=== PATIENT | male | born 1955 | race African-American/Black ===

== ENCOUNTER 2017-08-26 22:18 | Inpatient (IN) | payer OTHER ==
[~2017-08-26] VITALS: Ht 190.5 cm; Wt 185.1 kg
[2017-08-26 22:20] VITALS: BP 96/72
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
[2017-08-27] VITALS (9 sets, daily range): BP systolic 110–142; BP diastolic 62–79
[2017-08-27 00:50] LABS: BASOPHILS % (AUTO) 0.7 % (0.0-2.0); EOSINOPHILS % (AUTO) 0.9 % (0.0-3.0); HEMATOCRIT 37.2 % (42.0-52.0); HEMOGLOBIN 12.4 G/DL (14.2-18.0); LYMPHOCYTES % (AUTO) 22.8 % (20.0-45.0); MEAN CORPUSCULAR VOLUME 94 FL (80-99); MONOCYTES % (AUTO) 4.8 % (1.0-10.0); NEUTROPHILS % (AUTO) 70.9 % (45.0-75.0); PLATELET COUNT 132 K/UL (150-450); RED BLOOD COUNT 3.98 M/UL (4.70-6.10); RED CELL DISTRIBUTION WIDTH 13.6 % (11.6-14.8); WHITE BLOOD COUNT 10.5 K/UL (4.8-10.8)
[2017-08-27 00:52] LABS: APPEARANCE,URINE CLEAR; BILIRUBIN, URINE NEGATIVE (NEGATIVE); GLUCOSE, URINE (UA) NEGATIVE (NEGATIVE); KETONES,URINE NEGATIVE (NEGATIVE); LEUKOCYTE ESTERASE ,URINE NEGATIVE (NEGATIVE); NITRITE,URINE NEGATIVE (NEGATIVE); PH,URINE 5 (4.5-8.0); PROTEIN,URINE NEGATIVE (NEGATIVE); UROBILINOGEN,URINE NORMAL MG/DL (0.0-1.0)
[2017-08-27 00:55] LABS: COLOR,URINE YELLOW
[2017-08-27 01:00] LABS: ANION GAP 12 mmol/L (5-15); BLOOD UREA NITROGEN 20 mg/dL (7-18); CALCIUM 8.1 MG/DL (8.5-10.1); CARBON DIOXIDE 25 MMOL/L (21-32); CHLORIDE 101 MMOL/L (98-107); CREATININE 1.6 MG/DL (0.55-1.30); POTASSIUM 3.4 MMOL/L (3.5-5.1); SODIUM 138 MMOL/L (136-145)
[2017-08-27 01:04] LABS: ALANINE AMINOTRANSFERASE 30 U/L (12-78); ALBUMIN 3.1 G/DL (3.4-5.0); ALBUMIN/GLOBULIN RATIO 0.8 (1.0-2.7); ALKALINE PHOSPHATASE 57 U/L (46-116); ASPARTATE AMINO TRANSFERASE 44 U/L (15-37); BILIRUBIN,TOTAL 0.3 MG/DL (0.2-1.0)
[2017-08-27] MEDS ORDERED: METFORMIN HCL500 M1 ORAL (05:49)
[2017-08-27] MEDS ORDERED: LISINOPRIL2.5 MG ORAL (05:49)
--- NOTE | 2017-08-27 09:54 | Emergency Room Report ---
History of Present Illness General Chief Complaint: Altered Level of Consciousness Source: Patient Present Illness Allergies: Coded Allergies: No Known Allergies (Unverified , 08/27/17) Nursing Documentation-[facility] Past Medical History Deferred: Pt Cognitively Impaired Hx Hypertension: Yes Hx Diabetes: Yes Physical Exam Vital Signs Date Time Temp Pulse Resp B/P (MAP) Pulse Ox O2 Delivery O2 Flow Rate FiO2 08/26/17 21:57 97.7 87 18 85/60 96 Room Air 97.7 Medical Decision Making Diagnostic Impression: Primary Impression: Alcohol intoxication Qualified Codes: F10.920 - Alcohol use, unspecified with intoxication, uncomplicated Additional Impression: Morbid obesity with BMI of 50.0-59.9, adult ER Course Please refer to the initial note for the history exam and presentation At the [place] emergency department was concern regarding the patient's sensory deficit On repeat evaluation patient has sensation on both calf area and upper thigh Patient grimaced and moved his legs upward with stimulation Patient however still has difficulty standing and ambulating Multiple facilities including [facility], the ID have been contacted Noncommunicative the weight restraints for further imaging Patient does require further evaluation and care Upon multiple attempts for transfer to higher level of care we have been unsuccessful and patient admitted for further inpatient care Labs Test 08/27/17 00:25 White Blood Count 10.5 K/UL (4.8-10.8) Red Blood Count 3.98 M/UL (4.70-6.10) Hemoglobin 12.4 G/DL (14.2-18.0) Hematocrit 37.2 % (42.0-52.0) Mean Corpuscular Volume 94 FL (80-99) Mean Corpuscular Hemoglobin 31.2 PG (27.0-31.0) Mean Corpuscular Hemoglobin Concent 33.3 G/DL (32.0-36.0) Red Cell Distribution Width 13.6 % (11.6-14.8) Platelet Count 132 K/UL (150-450) Mean Platelet Volume 11.9 FL (6.5-10.1) Neutrophils (%) (Auto) 70.9 % (45.0-75.0) Lymphocytes (%) (Auto) 22.8 % (20.0-45.0) Monocytes (%) (Auto) 4.8 % (1.0-10.0) Eosinophils (%) (Auto) 0.9 % (0.0-3.0) Basophils (%) (Auto) 0.7 % (0.0-2.0) Urine Color Yellow Urine Appearance Clear Urine pH 5 (4.5-8.0) Urine Specific [place] 1.010 (1.005-1.035) Urine Protein Negative (NEGATIVE) Urine Glucose (UA) Negative (NEGATIVE) Urine Ketones Negative (NEGATIVE) Urine Occult Blood Negative (NEGATIVE) Urine Nitrite Negative (NEGATIVE) Urine Bilirubin Negative (NEGATIVE) Urine Urobilinogen Normal MG/DL (0.0-1.0) Urine Leukocyte Esterase Negative (NEGATIVE) Sodium Level 138 MMOL/L (136-145) Potassium Level 3.4 MMOL/L (3.5-5.1) Chloride Level 101 MMOL/L (98-107) Carbon Dioxide Level 25 MMOL/L (21-32) Anion Gap 12 mmol/L (5-15) Blood Urea Nitrogen 20 mg/dL (7-18) Creatinine 1.6 MG/DL (0.55-1.30) Estimat Glomerular Filtration Rate 43.5 mL/min (>60) Glucose Level 158 MG/DL (74-106) Calcium Level 8.1 MG/DL (8.5-10.1) Total Bilirubin 0.3 MG/DL (0.2-1.0) Aspartate Amino Transf (AST/SGOT) 44 U/L (15-37) Alanine Aminotransferase (ALT/SGPT) 30 U/L (12-78) Alkaline Phosphatase 57 U/L (46-116) Total Protein 6.8 G/DL (6.4-8.2) Albumin 3.1 G/DL (3.4-5.0) Globulin 3.7 g/dL Albumin/Globulin Ratio 0.8 (1.0-2.7) Lipase 197 U/L (73-393) Urine Opiates Screen Negative (NEGATIVE) Urine Barbiturates Screen Negative (NEGATIVE) Phencyclidine (PCP) Screen Negative (NEGATIVE) Urine Amphetamines Screen Negative (NEGATIVE) Urine Benzodiazepines Screen Negative (NEGATIVE) Urine Cocaine Screen Negative (NEGATIVE) Urine Marijuana (THC) Screen Positive (NEGATIVE) Serum Alcohol 201 mg/dL Rhythm Strip Diag. Results EP Interpretation: yes Rate: 88 Rhythm: NSR, no PVC's, no ectopy Last Vital Signs Date Time Temp Pulse Resp B/P (MAP) Pulse Ox O2 Delivery O2 Flow Rate FiO2 08/27/17 06:30 94 21 120/68 98 Room Air 08/27/17 05:15 97.8 97.8 Status: improved Disposition: ADMITTED INPATIENT Condition: Serious Referrals: NOT CHOSEN IPA/MD,REFERRING (PCP) Patient Instructions: Altered Mental Status Khadra Watts DO Aug 27, 2017 09:54
[2017-08-27] MEDS: D5 1/2NS 1,000 ML IV SCH (15:46)
--- NOTE | 2017-08-27 18:03 | Neurology Progress Note ---
Objective Physical Exam Last Vital Signs Date Time Temp Pulse Resp B/P (MAP) Pulse Ox O2 Delivery O2 Flow Rate FiO2 08/27/17 16:00 98.5 91 20 118/79 98 Room Air 98.5 Laboratory Tests Test 08/27/17 00:25 08/27/17 16:25 White Blood Count 10.5 K/UL (4.8-10.8) Red Blood Count 3.98 M/UL (4.70-6.10) L Hemoglobin 12.4 G/DL (14.2-18.0) L Hematocrit 37.2 % (42.0-52.0) L Mean Corpuscular Volume 94 FL (80-99) Mean Corpuscular Hemoglobin 31.2 PG (27.0-31.0) H Mean Corpuscular Hemoglobin Concent 33.3 G/DL (32.0-36.0) Red Cell Distribution Width 13.6 % (11.6-14.8) Platelet Count 132 K/UL (150-450) L Mean Platelet Volume 11.9 FL (6.5-10.1) H Neutrophils (%) (Auto) 70.9 % (45.0-75.0) Lymphocytes (%) (Auto) 22.8 % (20.0-45.0) Monocytes (%) (Auto) 4.8 % (1.0-10.0) Eosinophils (%) (Auto) 0.9 % (0.0-3.0) Basophils (%) (Auto) 0.7 % (0.0-2.0) Urine Color Yellow Urine Appearance Clear Urine pH 5 (4.5-8.0) Urine Specific [place] 1.010 (1.005-1.035) Urine Protein Negative (NEGATIVE) Urine Glucose (UA) Negative (NEGATIVE) Urine Ketones Negative (NEGATIVE) Urine Occult Blood Negative (NEGATIVE) Urine Nitrite Negative (NEGATIVE) Urine Bilirubin Negative (NEGATIVE) Urine Urobilinogen Normal MG/DL (0.0-1.0) Urine Leukocyte Esterase Negative (NEGATIVE) Sodium Level 138 MMOL/L (136-145) Potassium Level 3.4 MMOL/L (3.5-5.1) L Chloride Level 101 MMOL/L (98-107) Carbon Dioxide Level 25 MMOL/L (21-32) Anion Gap 12 mmol/L (5-15) Blood Urea Nitrogen 20 mg/dL (7-18) H Creatinine 1.6 MG/DL (0.55-1.30) H Estimat Glomerular Filtration Rate 43.5 mL/min (>60) Glucose Level 158 MG/DL (74-106) H Calcium Level 8.1 MG/DL (8.5-10.1) L Total Bilirubin 0.3 MG/DL (0.2-1.0) Aspartate Amino Transf (AST/SGOT) 44 U/L (15-37) H Alanine Aminotransferase (ALT/SGPT) 30 U/L (12-78) Alkaline Phosphatase 57 U/L (46-116) Total Protein 6.8 G/DL (6.4-8.2) Albumin 3.1 G/DL (3.4-5.0) L Globulin 3.7 g/dL Albumin/Globulin Ratio 0.8 (1.0-2.7) L Lipase 197 U/L (73-393) Urine Opiates Screen Negative (NEGATIVE) Urine Barbiturates Screen Negative (NEGATIVE) Phencyclidine (PCP) Screen Negative (NEGATIVE) Urine Amphetamines Screen Negative (NEGATIVE) Urine Benzodiazepines Screen Negative (NEGATIVE) Urine Cocaine Screen Negative (NEGATIVE) Urine Marijuana (THC) Screen Positive (NEGATIVE) H Serum Alcohol 201 mg/dL Troponin I 0.009 ng/mL (0.000-0.056) Impression/Recommendations Problems: (1) Acute traumatic paraplegia (2) r/o low cervical/high thoracic spine fracture with myelopathy (3) Morbid obesity with BMI of 50.0-59.9, adult Status: not improved Recommendations #[id number] ADILIA LINDO Aug 27, 2017 18:03
[2017-08-27] MEDS: NovoLOG Insulin Flexpen SUBQ SCH ×2 (19:10→22:28)
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
--- NOTE | 2017-08-27 20:24 | General Progress Note ---
Progress Note Progress Note [id number] full consult dictated BASSAM COYNE Aug 27, 2017 20:24
[2017-08-27] MEDS: Heparin 5000 units/ml inj SUBQ SCH (21:00)
[2017-08-28] VITALS: BP 110/60
[2017-08-28 04:00] VITALS: BP 117/64
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
[2017-08-28] MEDS: NovoLOG Insulin Flexpen SUBQ SCH ×3 (06:22→17:28)
[2017-08-28 08:00] VITALS: BP 128/70
[2017-08-28] MEDS: D5 1/2NS 1,000 ML IV SCH (08:13)
[2017-08-28 08:18] LABS: BASOPHILS % (AUTO) 0.6 % (0.0-2.0); EOSINOPHILS % (AUTO) 0.2 % (0.0-3.0); HEMATOCRIT 37.4 % (42.0-52.0); HEMOGLOBIN 12.7 G/DL (14.2-18.0); LYMPHOCYTES % (AUTO) 20.1 % (20.0-45.0); MEAN CORPUSCULAR VOLUME 92 FL (80-99); MONOCYTES % (AUTO) 6.6 % (1.0-10.0); NEUTROPHILS % (AUTO) 72.5 % (45.0-75.0); PLATELET COUNT 115 K/UL (150-450); RED BLOOD COUNT 4.05 M/UL (4.70-6.10); RED CELL DISTRIBUTION WIDTH 13.3 % (11.6-14.8); WHITE BLOOD COUNT 7.4 K/UL (4.8-10.8)
[2017-08-28 08:36] LABS: ANION GAP 8 mmol/L (5-15); BLOOD UREA NITROGEN 15 mg/dL (7-18); CALCIUM 7.8 MG/DL (8.5-10.1); CARBON DIOXIDE 27 MMOL/L (21-32); CHLORIDE 103 MMOL/L (98-107); CREATININE 0.9 MG/DL (0.55-1.30); POTASSIUM 3.8 MMOL/L (3.5-5.1); SODIUM 138 MMOL/L (136-145)
[2017-08-28] MEDS: Heparin 5000 units/ml inj SUBQ SCH (08:46)
[2017-08-28] MEDS ORDERED: hydroCHLOROthiazide 12.5mg TAB ORAL SCH (09:00)
[2017-08-28] MEDS ORDERED: Lisinopril 20mg tab ORAL SCH (09:00)
--- NOTE | 2017-08-28 09:56 | Neurology Progress Note ---
Interim History Interim History ROS Limited/Unobtainable: No Complaints: Left parietal KAM cervical midthoracic tenderness, limited jaw opening Events: slightly better re some movements in BLE Objective Physical Exam Last Vital Signs Date Time Temp Pulse Resp B/P (MAP) Pulse Ox O2 Delivery O2 Flow Rate FiO2 08/28/17 08:13 128/70 08/28/17 08:00 98.2 97 20 95 98.2 08/28/17 00:00 Room Air Laboratory Tests Test 08/27/17 16:25 08/28/17 02:15 08/28/17 05:30 Troponin I 0.009 ng/mL (0.000-0.056) Urine Eosinophils None seen Urine Random Creatinine Pending Urine Random Microalbumin Pending Urine Random Total Protein 63 MG/DL (< 11.9) H Urine Random Sodium 58 mmol/L (20-110) Urine Creatinine 180.3 MG/DL (30.0-125.0) H Urine Microalbumin/Creatinine Ratio Pending White Blood Count 7.4 K/UL (4.8-10.8) Red Blood Count 4.05 M/UL (4.70-6.10) L Hemoglobin 12.7 G/DL (14.2-18.0) L Hematocrit 37.4 % (42.0-52.0) L Mean Corpuscular Volume 92 FL (80-99) Mean Corpuscular Hemoglobin 31.3 PG (27.0-31.0) H Mean Corpuscular Hemoglobin Concent 33.8 G/DL (32.0-36.0) Red Cell Distribution Width 13.3 % (11.6-14.8) Platelet Count 115 K/UL (150-450) L Mean Platelet Volume 11.1 FL (6.5-10.1) H Neutrophils (%) (Auto) 72.5 % (45.0-75.0) Lymphocytes (%) (Auto) 20.1 % (20.0-45.0) Monocytes (%) (Auto) 6.6 % (1.0-10.0) Eosinophils (%) (Auto) 0.2 % (0.0-3.0) Basophils (%) (Auto) 0.6 % (0.0-2.0) Sodium Level 138 MMOL/L (136-145) Potassium Level 3.8 MMOL/L (3.5-5.1) Chloride Level 103 MMOL/L (98-107) Carbon Dioxide Level 27 MMOL/L (21-32) Anion Gap 8 mmol/L (5-15) Blood Urea Nitrogen 15 mg/dL (7-18) Creatinine 0.9 MG/DL (0.55-1.30) Estimat Glomerular Filtration Rate > 60 mL/min (>60) Glucose Level 155 MG/DL (74-106) H Calcium Level 7.8 MG/DL (8.5-10.1) L General: well developed, no acute distress, other - morbid obesity 400lbs Head: normocophalic, other - tender L parietal area,no otorrhea no visible signes of trauma Neck: no rigidity, other - in sogt neck collar tender C spine and mid T spine no deformity noted EENT: other - limited mouth openong Neurologic Exam Mental Status: awake, alert, oriented x4, normal cognition, good mathematical skills, normal recent memory, normal remote memory, preserved visuospatial function Speech: normal speech, no dysarthia Language: normal language, no aphasia Cranial Nerve II: fundus normal, visual manzo, no papilledema Cranial Nerves III, IV, : PERRLA, EOMI, pupils Cranial Nerve V: normal facial sensations, temporales function normal, masseters function normal, pterygoids function normal Cranial Nerve VII: no facial asymmetry, normal facial expressions Cranial Nerve VIII: normal hearing, no nystagmus Cranial Nerve IX: normal palate elevation, gag response Cranial Nerve X: no voice hoarseness Cranial Nerve XI: SCM symmetric, trapezii function normal Cranial Nerve XII: tongue midline, no tongue atrophy/fasciculations Motor System: normal muscle tone, strength 5/5, no involuntary movement, no muscle wasting, other - -2/5 distal BLE Sensory: other - sensory loss t4 down Coordination: normal finger to nose bilaterally Deep Tendon Reflexes: 0 knee (L), 0 knee (R), 0 ankle (L), 0 ankle (R), 1+ bicep (L), 1+ bicep (R), 1+ tricep (L), 1+ tricep (R), 1+ brachioradialis (L), 1 + brachioradialis (R) Reflexes: mute plantar (L), mute plantar (R) Stance: normal, other Gait: stable, normal regular, heel + toe gait, other Impression/Recommendations Problems: (1) Acute traumatic paraplegia (2) r/o low cervical/high thoracic spine fracture with myelopathy (3) Morbid obesity with BMI of 50.0-59.9, adult Status: not improved Recommendations #[id number] not accepted for transfer 2/2 large girth x ray jeremiah, s and T spine ,portable [id number] tidx 2days monitor bed spine surgery eval try again to find proper hospital for transfer d/w attending and staff ADILIA LINDO Aug 28, 2017 09:56
--- NOTE | 2017-08-28 10:10 | Diagnostic Imaging Report ---
Indication: Trauma Technique: 3 views of the cervical spine Comparison: none Findings: Exam very limited due to patient body habitus, patient's shoulders obscure the cervical spine from mid C5 down, particularly the cervicothoracic junction. There is widening of the prevertebral space. This may be due to body habitus, however. No definite acute fractures. Large anterior flowing osteophytes are demonstrated. Vertebral body heights are preserved. The disc spaces are grossly preserved. Impression: Very limited exam. No definite acute bony trauma. However, CT should be considered for more sensitive evaluation if there is high clinical suspicion Degenerative changes, as described This agrees with the preliminary interpretation provided overnight by [facility].
[2017-08-28] MEDS: Dexamethasone 4mg/ml vial IVP SCH ×2 (11:36→17:31)
[2017-08-28 12:00] VITALS: BP 134/86
--- NOTE | 2017-08-28 12:38 | Diagnostic Imaging Report ---
Indication: Trauma, status post fall Technique: One view of the chest Comparison: none Findings: The heart is enlarged. There is some atelectasis at both lung bases. Lungs and pleural spaces are otherwise clear. Impression: Cardiomegaly Bilateral basilar atelectasis No acute process otherwise
--- NOTE | 2017-08-28 14:36 | General Progress Note ---
Assessment/Plan Problem List: (1) Paralysis ICD Codes: G83.9 - Paralytic syndrome, unspecified SNOMED: 71446626 (2) Alcohol intoxication ICD Codes: F10.929 - Alcohol use, unspecified with intoxication, unspecified SNOMED: 69740257 Qualifiers: Qualified Codes: F10.920 - Alcohol use, unspecified with intoxication, uncomplicated (3) Morbid obesity with BMI of 50.0-59.9, adult ICD Codes: E66.01 - Morbid (severe) obesity due to excess calories; Z68.43 - Body mass index (BMI) 50-59.9 , adult SNOMED: 029835342, 568677589 (4) Weakness generalized ICD Codes: R53.1 - Weakness SNOMED: 32382244 (5) Acute traumatic paraplegia ICD Codes: G82.20 - Paraplegia, unspecified SNOMED: 168819737 (6) r/o low cervical/high thoracic spine fracture with myelopathy Status: unchanged Assessment/Plan neuro f/u, cbc bmp am, transfering to [facility] for higher level care Subjective Constitutional: Reports: weakness Allergies: Coded Allergies: No Known Allergies (Unverified , 08/27/17) All Systems: reviewed and negative except above Subjective calm in bed Objective Last 24 Hour Vital Signs Date Time Temp Pulse Resp B/P (MAP) Pulse Ox O2 Delivery O2 Flow Rate FiO2 08/28/17 12:00 97.7 98 20 134/86 94 Room Air 97.7 08/28/17 08:13 128/70 08/28/17 08:00 98.2 97 20 128/70 95 98.2 08/28/17 08:00 98.2 97 20 128/70 95 Room Air 98.2 08/28/17 04:00 98.1 99 20 117/64 97 98.1 08/28/17 00:00 98.2 105 21 110/60 95 98.2 08/28/17 00:00 96 Room Air 08/27/17 20:00 96 Room Air 08/27/17 20:00 98.9 109 19 125/68 94 98.9 08/27/17 16:00 98.5 91 20 118/79 98 Room Air 98.5 Intake and Output 08/27/17 08/28/17 19:00 07:00 Intake Total 60 ml 660 ml Output Total 1400 ml 550 ml Balance -1340 ml 110 ml Intake IV Total 60 ml 660 ml Output Urine Total 1400 ml 550 ml # Voids 1 # Bowel Movements 1 Laboratory Tests 08/27/17 16:25: Troponin I 0.009 08/28/17 02:15: Urine Eosinophils None seen, Urine Random Creatinine [Pending], Urine Random Microalbumin [Pending], Urine Random Total Protein 63H, Urine Random Sodium 58, Urine Creatinine 180.3H, Urine Microalbumin/Creatinine Ratio [Pending] 08/28/17 05:30: White Blood Count 7.4, Red Blood Count 4.05L, Hemoglobin 12.7L, Hematocrit 37.4L , Mean Corpuscular Volume 92, Mean Corpuscular Hemoglobin 31.3H, Mean Corpuscular Hemoglobin Concent 33.8, Red Cell Distribution Width 13.3, Platelet Count 115L, Mean Platelet Volume 11.1H, Neutrophils (%) (Auto) 72.5, Lymphocytes (%) (Auto) 20.1, Monocytes (%) (Auto) 6.6, Eosinophils (%) (Auto) 0.2, Basophils (%) (Auto) 0.6, Sodium Level 138, Potassium Level 3.8, Chloride Level 103, Carbon Dioxide Level 27, Anion Gap 8, Blood Urea Nitrogen 15, Creatinine 0.9, Estimat Glomerular Filtration Rate > 60, Glucose Level 155H, Calcium Level 7.8L Height (Feet): 6 Height (Inches): 3.00 Weight (Pounds): 408 General Appearance: alert EENT: normal ENT inspection Neck: normal alignment Cardiovascular: normal peripheral pulses, normal rate, regular rhythm Respiratory/Chest: chest wall non-tender, lungs clear, normal breath sounds Abdomen: normal bowel sounds, non tender, soft Extremities: non-tender Edema: no edema noted Arm (L), no edema noted Arm (R), no edema noted Leg (L), no edema noted Leg (R), no edema noted Pedal (L), no edema noted Pedal (R), no edema noted Generalized Neurologic: responsive, motor weakness Skin: normal pigmentation, warm/dry BALDEV ENCISO Aug 28, 2017 14:36
[2017-08-28 16:00] VITALS: BP 143/93
--- NOTE | 2017-08-28 22:00 | Nephrology Progress Note ---
Assessment/Plan Assessment 1. Acute renal failure. 2. Hypokalemia. 3. Hypocalcemia. 4. Alcoholic intoxication. 5. Morbid obesity. 6. Diabetes. Plan plan to continue current iv monitoring renal function avoid NSAID replace electrolyte as need it Subjective Constitutional: Reports: no symptoms HEENT: Reports: no symptoms Genitourinary: Reports: no symptoms Neurologic/Psychiatric: Reports: no symptoms Subjective alert and awake no acute events over night Objective Objective Last 24 Hour Vital Signs Date Time Temp Pulse Resp B/P (MAP) Pulse Ox O2 Delivery O2 Flow Rate FiO2 08/28/17 16:00 98.2 100 20 143/93 94 Room Air 98.2 08/28/17 12:00 97.7 98 20 134/86 94 Room Air 97.7 08/28/17 08:13 128/70 08/28/17 08:00 98.2 97 20 128/70 95 98.2 08/28/17 08:00 98.2 97 20 128/70 95 Room Air 98.2 08/28/17 04:00 98.1 99 20 117/64 97 98.1 08/28/17 00:00 98.2 105 21 110/60 95 98.2 08/28/17 00:00 96 Room Air Intake and Output 08/27/17 08/28/17 19:00 07:00 Intake Total 180 ml 720 ml Output Total 1400 ml 550 ml Balance -1220 ml 170 ml IV Total 180 ml 720 ml Output Urine Total 1400 ml 550 ml # Voids 1 # Bowel Movements 1 Laboratory Tests 08/28/17 02:15: Urine Eosinophils None seen, Urine Random Creatinine [Pending], Urine Random Microalbumin [Pending], Urine Random Total Protein 63H, Urine Random Sodium 58, Urine Creatinine 180.3H, Urine Microalbumin/Creatinine Ratio [Pending] 08/28/17 05:30: White Blood Count 7.4, Red Blood Count 4.05L, Hemoglobin 12.7L, Hematocrit 37.4L , Mean Corpuscular Volume 92, Mean Corpuscular Hemoglobin 31.3H, Mean Corpuscular Hemoglobin Concent 33.8, Red Cell Distribution Width 13.3, Platelet Count 115L, Mean Platelet Volume 11.1H, Neutrophils (%) (Auto) 72.5, Lymphocytes (%) (Auto) 20.1, Monocytes (%) (Auto) 6.6, Eosinophils (%) (Auto) 0.2, Basophils (%) (Auto) 0.6, Sodium Level 138, Potassium Level 3.8, Chloride Level 103, Carbon Dioxide Level 27, Anion Gap 8, Blood Urea Nitrogen 15, Creatinine 0.9, Estimat Glomerular Filtration Rate > 60, Glucose Level 155H, Calcium Level 7.8L Height (Feet): 6 Height (Inches): 3.00 Weight (Pounds): 408 Objective HEAD AND NECK: No JVP. No LAD. No thyromegaly. Extraocular movement intact. Sclerae reactive to light and accommodation. LUNGS: Clear to auscultation. CARDIAC: Regular rate and rhythm. S1, S2. No murmur. No rub. ABDOMEN: Obese, nontender, nondistended. EXTREMITIES: A 2+ edema. No clubbing, no cyanosis. NEUROLOGIC: Cranial nerves II through XII within normal limit. Motor in lower extremity is 1/5, and has chronic vascular changes on his lower extremities. BASSAM COYNE Aug 28, 2017 22:00
--- NOTE | 2017-08-29 16:17 | Discharge Summary ---
Discharge Summary Hospital Course Date of Admission Aug 27, 2017 at 09:20 Date of Discharge Aug 28, 2017 at 19:10 Admitting Diagnosis General Weakness, Unable to Ambulate HPI Len Sweet is a 62 year old male who was admitted on Aug 27, 2017 at 09:20 for General Weakness,Unable To Ambulate Hospital Course dc summary #[id number] Discharge Condition Upon Discharge: stable Discharge Disposition Patient was discharged to [facility] for higher level of care Discharge Diagnoses: Discharge Instructions Discharge Instructions Special Instructions I have been assigned to complete a D/C Summary on this account. I was not involved in the patient management Landy Castro NP (Vanchtein) Aug 29, 2017 16:17
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
--- NOTE | 2017-08-30 20:18 | Cardiology Report ---
APPROVED REPORT EKG Measurement Heart [id number] Sinus tachycardia Possible Anterior infarct, age undetermined Abnormal ECG
== END 2017-08-28 19:10 | disposition short-term general hospital (02) | DRG 897 ==
LOC: EDBD 22:18 → EMR 23:00 → EDBD 23:00 → EDBEDREQ 08-27 09:18 → 4E 08-27 09:20
DX: F10.129 Alcohol abuse with intoxication, unspecified (principal); N17.9 Acute kidney failure, unspecified; G95.9 Disease of spinal cord, unspecified; Z68.43 Body mass index [BMI] 50.0-59.9, adult; G83.9 Paralytic syndrome, unspecified; E83.51 Hypocalcemia; S14.109A Unspecified injury at unspecified level of cervical spinal cord, initial encounter; E11.9 Type 2 diabetes mellitus without complications; I10 Essential (primary) hypertension; D64.9 Anemia, unspecified; E66.01 Morbid (severe) obesity due to excess calories; F12.90 Cannabis use, unspecified, uncomplicated; E87.6 Hypokalemia; X58.XXXA Exposure to other specified factors, initial encounter; Y92.9 Unspecified place or not applicable
CPT/HCPCS: 36415; 71045; 72040; 80048; 80053; 80307; 80329; 81003; 82043; 82044; 82570; 82962; 83690; 84300; 84484; 85025; 89050; 93005; 99285; J1815